=== PATIENT | female | born 1940 | race Caucasian/White ===

== ENCOUNTER → 2016-05-14 | Outpatient (CLI) | payer MEDICARE ==
[~2016-05-14] MED LIST: ALPR.5T PO; CALC-250 PO; CALC-80 PO; LEVO25TA45 PO; LISI10TA PO; LISI40TA PO; REGADENOSON 0.4 MG/5 ML SYR (LEXISCAN) IV ONE; ROPI1TAB40 PO; ROPI2TAB4 PO; TRAM50TA2 PO
--- OUTSIDE RECORDS SUMMARY | 2016-05-14 06:45 | XMS REPORT | Continuity of Care Document ---
Author Author [facility] Organization [facility] Address Unknown Phone Unavailable Allergies Active Description Code Type Severity Reaction Onset Reported/Identified Relationship to Patient Clinical Status Yes Sulfa (Sulfonamide Antibiotics) [id number] Drug Allergy Unknown N/A 12/13/2007 Medications Problems Date Dx Coded Attending Type Code Diagnosis Diagnosed By 03/21/2014 Ot 733.00 03/21/2014 Ot 733.00 03/21/2014 Ot 715.94 03/21/2014 Ot 733.90 03/21/2014 Ot 786.09 04/14/2014 FERMIN CAVAZOS DO Ot 733.00 04/14/2014 FERMIN CAVAZOS DO Ot 786.09 05/03/2014 FERMIN CAVAZOS DO Ot 733.00 05/03/2014 FERMIN CAVAZOS DO Ot 786.09 05/08/2014 FERMIN CAVAZOS DO Ot 496 03/12/2015 Ot 733.00 03/12/2015 Ot 733.00 03/12/2015 Ot 715.94 03/12/2015 Ot 733.90 03/12/2015 Ot 786.09 03/12/2015 FERMIN CAVAZOS DO Ot 733.00 03/12/2015 FERMIN CAVAZOS DO Ot 786.09 03/12/2015 FERMIN CAVAZOS DO Ot 496 04/04/2015 EUGENIA CAVAZOS Ot I65.22 04/04/2015 EUGENIA CAVAZOS Ot I67.1 04/04/2015 EUEGNIA CAVAZOS Ot R59.0 Procedures Results Encounters ACCT No. Visit Date/Time Discharge Status Pt. Type Provider Facility Loc./Unit Complaint [id number] 04/09/2014 15:21:00 2014 23:59:59 CLS Outpatient FERMIN CAVAZOS DO [facility] RT [id number] 03/22/2014 08:58:00 2014 23:59:59 CLS Outpatient FERMIN CAVAZOS DO [facility] RAD [id number] 03/12/2015 12:23:00 ACT Outpatient EUGENIA CAVAZOS [facility] RAD [id number] 07/07/2011 06:20:00 Document Registration [id number] 11/26/2010 13:54:00 Document Registration [id number] 10/09/2010 10:04:00 Document Registration [id number] 01/28/2010 13:34:00 Document Registration
[2016-05-14] MEDS: CATHETER FLUSH 10 ML SYR IV PRN (07:14)
[2016-05-14 08:13] VITALS: BP 178/91
[2016-05-14] MEDS: REGADENOSON 0.4 MG/5 ML SYR (LEXISCAN) IV ONE (08:14)
[2016-05-14 08:17] VITALS: BP 161/103
[2016-05-14 08:19] VITALS: BP 178/99
--- NOTE | 2016-05-15 14:07 | STRESS TEST ---
PROCEDURE PHYSICIAN: JOSE BHATT DATE OF PROCEDURE: 05/14/2016 RESTING AND POST REGADENOSON TECHNETIUM 99M TETROFOSMIN SPECT CT IMAGING: ORDERING PHYSICIAN: Dr. Franco PRIMARY PHYSICIAN: Dr. Franco CLINICAL DIAGNOSIS: I10, J44.9 DESCRIPTION: Baseline images were carried out after injection of 10.93 mCi of technetium 99m tetrofosmin. This was followed by 0.4 mg of regadenoson and 32.9 mCi of technetium 99m tetrofosmin. This portion of the study was carried out under Dr. Fracno's supervision, including the electrocardiogram and is to be reported separately by Dr. Franco. Review of images at rest and following stress, does not indicate any significant perfusion defects consistent with significant myocardial ischemia or infarction. Left ventricular ejection fraction is 81%. Left ventricular end-diastolic volume is 57 mL. TID is absent (0.86). Gated images show normal global left ventricular systolic function with normal regional wall motion. CONCLUSIONS: 1. No evidence of any significant myocardial ischemia or infarction on this study. 2. Normal regional wall motion. 3. Normal global left ventricular systolic function with a calculated ejection fraction 81%. Job ID: [id number] Dictated Date: 05/15/2016 13:06:00 Chart Writer Date: 05/15/2016 14:03:44 / [email or web address]
== END ==
LOC: CARD 06:41
PROVIDERS: ATTEND Internal Medicine
DX: I10 Essential (primary) hypertension (principal); J44.9 Chronic obstructive pulmonary disease, unspecified
CPT/HCPCS: 78452; 93017